=== PATIENT | female | born 1985 | race African-American/Black ===

== ENCOUNTER 2024-11-17 06:06 | Emergency (ER) | payer SELFPAY ==
[2024-11-17] MEDS ORDERED: ONDANSETRON 4 MG/2 ML VIAL ONE (06:48)
[2024-11-17] MEDS ORDERED: droPERidol 5 MG/2 ML VIAL ONE (06:48)
[2024-11-17] MEDS ORDERED: KETOROLAC 30 MG/ML INJ ONE (06:48)
[2024-11-17] MEDS ORDERED: CEFTRIAXONE 1000 MG/VIAL ONE (06:48)
[2024-11-17] MEDS ORDERED: MORPHINE 4 MG/ML SYR ONE (06:49)
[2024-11-17] MEDS ORDERED: NA CHLORIDE 0.9% 1,000 ML ONE (06:49)
[2024-11-17 06:55] LABS: Absolute Basophils 0.1 K/uL (0-0.5); Absolute Monocytes 1.1 K/uL (0.1-1.3); Absolute Neutrophil 10.2 K/uL (1.8-8.0); Basophils % 0.6 % (0-1.3); Eosinophils % 0.3 % (0-4.4); Hematocrit 39.7 % (36.0-45.0); Hemoglobin 13.9 g/dL (12.0-15.0); Lymphocytes % 14.7 % (15.3-44.8); MCH 33.9 pg (27.0-35.0); MCHC 35.1 g/dL (32.0-36.0); MCV 96.6 fL (80-100); MPV 8.1 fL (7.6-11.3); Monocytes % 8.5 % (3.3-12.3); Neutrophils % 75.9 % (41.7-73.7); Platelets 269 thou/uL (152-406); RBC Red Blood Cell Count 4.11 M/uL (3.86-4.86); Red Cell Distribution Width 13.8 % (12.1-15.2)
[2024-11-17 07:10] LABS: Albumin 3.9 g/dL (3.4-5.0); Albumin/Globulin Ratio 1.1 (1.1-1.8); Anion Gap 8.8 mEq/L (5.0-15.0); Bilirubin Total 0.5 mg/dL (0.2-1.0); Globulin 3.6 g/dL (2.3-3.5); Potassium 3.8 mEq/L (3.5-5.1); Protein, Total 7.5 g/dL (6.4-8.2)
--- NOTE | 2024-11-17 07:26 | RAD REPORT ---
EXAMINATION: CT MAXILLOFACIAL WITHOUT CONTRAST CLINICAL INDICATION: Facial pain.. Facial swelling TECHNIQUE: Axial images were obtained through the facial bones and orbits without intravenous contras t. Sagittal and coronal reconstructions were created from the data. One or more of the following dose reduction techniques were used: Automated exposure control, adjustment of the mA and/or kV accor ding to patient size, and/or iterative reconstruction. Unless otherwise specified, incidental findings do not require dedicated imaging follow-up. COMPARISON: No prior exam. FINDINGS: 6 mm lucency surrounds a right mandibular tooth system with abscess. Marked superficial swelling is present. A fluid-filled abscess not visualized. Visualized airway unremarkable Fluid within the sinuses not seen IMPRESSION: Right mandibular tooth apical abscess with marked superficial swelling compatible with a sinusitis
--- NOTE | 2024-11-17 07:29 | EDPHYS ---
Physician Documentation [facility] Name: Home [facility]oa Age: 39 yrs Sex: Female : 1985 Arrival Date: 11/17/2024 Time: 06:06 Bed 15 Private MD: ED Physician Patel Schumacher HPI: 11/17 06:11 This 39 yrs old Black Female presents to ER via Unassigned with complaints of Facial sp4 Swelling, Toothache, Nausea/Vomiting. 07:12 39-year-old female presents with acute pain swelling right lower facial area. Patient sp4 reports moderate to severe dental pain for the past several days. Denied any difficulty breathing.. DEPENDENCY DIRECTOR: 06:25 unknown, couple of weeks ago vc1 Historical: - Allergies: 06:23 Codeine; vc1 - Home Meds: 06:23 None [Active]; vc1 - PMHx: 06:23 None; vc1 - PSHx: 06:23 oophorectomy; right; vc1 - Immunization history:: Client reports receiving the 2nd dose of the Covid vaccine, Flu vaccine is not up to date. - Infectious Disease History:: Denies. - Social history:: Smoking status: Patient reports the use of cigarette tobacco products, smokes one-half pack cigarettes per day. - Family history:: not pertinent. ROS: 07:12 Constitutional: Negative for fever, chills, and weight loss, positive right lower sp4 facial pain, positive right lower dental pain 07:12 All other systems are negative, Exam: 07:12 Constitutional: This is a well developed, well nourished patient who is awake, alert, sp4 and in no acute distress. Head/Face: Normocephalic, atraumatic. Eyes: Pupils equal round and reactive to light, extra-ocular motions intact. Lids and lashes normal. Conjunctiva and sclera are not injected. Cornea within normal limits. Periorbital areas with no swelling, redness, or edema. ENT: Nares patent. No nasal discharge, no septal abnormalities noted. Tympanic membranes are normal and external auditory canals are clear. Oropharynx with no redness, swelling, or masses, exudates, or evidence of obstruction, uvula midline. Mucous membranes moist. Neck: Trachea midline, no thyromegaly or masses palpated, and no cervical lymphadenopathy. Supple, full range of motion without nuchal rigidity, or vertebral point tenderness. Chest/axilla: Normal chest wall appearance and motion. Nontender with no deformity. No lesions are appreciated. Cardiovascular: Regular rate and rhythm with a normal S1 and S2. No gallops, murmurs, or rubs. Normal PMI, no JVD. No pulse deficits. Respiratory: Lungs have equal breath sounds bilaterally, clear to auscultation and percussion. No rales, rhonchi or wheezes noted. No increased work of breathing, no retractions or nasal flaring. Abdomen/GI: Soft, with normal bowel sounds. No distension or tympany. No guarding or rebound. No evidence of tenderness throughout. Back: No spinal tenderness. No costovertebral tenderness. Skin: Warm, dry with normal turgor. Normal color with no rashes, no lesions, and no evidence of cellulitis. MS/ Extremity: Pulses equal, no cyanosis. Neurovascular intact. Full, normal range of motion. Neuro: Awake and alert, GCS 15, oriented to person, place, time, and situation. Cranial nerves II-XII grossly intact. Motor strength 5/5 in all extremities. Sensory grossly intact. Psych: Awake, alert, with orientation to person, place and time. Behavior, mood, and affect are within normal limits Vital Signs: 06:20 BP 148 / 86; Pulse 108; Resp 18; Temp 98.8; Pulse Ox 100% ; Weight 90.72 kg; Height 5 vc1 ft. 7 in. ; Pain 10/10; 07:21 BP 116 / 77; Pulse 75; Resp 18; Pulse Ox 100% on R/A; Pain 9/10; ld1 08:00 BP 122 / 79; Pulse 71; Resp 18; Pulse Ox 100% on R/A; Pain 5/10; ld1 06:20 Body Mass Index 31.32 (90.72 kg, 170.18 cm) vc1 06:20 Pain Scale: Adult vc1 07:21 Pain Scale: Adult ld1 08:00 Pain Scale: Adult ld1 Jevon Coma Score: 06:23 Eye Response: spontaneous(4). Motor Response: obeys commands(6). Verbal Response: rg5 oriented(5). Total: 15. 07:12 Eye Response: spontaneous(4). Motor Response: obeys commands(6). Verbal Response: sp4 oriented(5). Total: 15. MDM: 06:57 Medical Screening Exam initiated sp4 07:14 Differential diagnosis: dental caries, gingivitis, dental abscess, aphthous ulcers, sp4 gingivostomatitis. Data reviewed: vital signs, nurses notes, lab test result(s), radiologic studies, CT scan. Consideration of Admission/Observation Escalation of care including admission/observation considered. Transition of care: After a detail discussion of the patient's case, care is transferred to Patel Schumacher DO. 07:54 I considered the following discharge prescriptions or medication management in the [facility] emergency department Medications were administered in the Emergency Department. See MAR. Independent interpretation of the following test(s) in the Emergency Department CT Scan: My interpretation is CT images reviewed by me showed periapical abscess. Counseling: I had a detailed discussion with the patient and/or guardian regarding the historical points, exam findings, and any diagnostic results supporting the discharge/admit diagnosis, lab results, radiology results, the need for outpatient follow up, to return to the emergency department if symptoms worsen or persist or if there are any questions or concerns that arise at home. Transition of care: Care assumed from Isac Cristina MD. Special discussion: I discussed with the patient/guardian in detail that at this point there is no indication for admission to the hospital. It is understood, however, that if the symptoms persist or worsen the patient needs to return immediately for re-evaluation. ED course: Discussed labs and imaging results with patient. Patient given prescription for clindamycin 300 mg 4 times daily. Patient to follow-up with Dr. Higgins or in 2 to 3 days. Patient's submandibular space soft, no induration, no erythema. Patient tolerating p.o. Return precautions discussed to include submandibular erythema, swelling, tongue elevation, difficulty breathing, worsening symptoms, or any other concerns.. 11/17 06:34 Order name: CBC with Diff; Complete Time: 07:14 sp4 11/17 06:34 Order name: CMP; Complete Time: 07:14 4 11/17 06:36 Order name: Test, Serum; Complete Time: 07:14 sp4 11/17 06:36 Order name: CT Facial Bones W/O Con; Complete Time: 07:27 4 11/17 06:34 Order name: IV Saline Lock; Complete Time: 06:45 sp4 11/17 06:34 Order name: Labs collected and sent; Complete Time: 06:44 sp4 Administered Medications: 07:01 Drug: TORadol - Ketorolac IVP 30 mg IVP once Route: IVP; Site: right antecubital; rg5 08:01 Follow up: Response: No adverse reaction ld1 07:01 Drug: Ondansetron IVP 4 mg IVP once; over 2 minutes Route: IVP; Site: right antecubital;rg5 08:01 Follow up: Response: No adverse reaction ld1 07:01 Drug: NS 0.9% IV 1000 ml IV at 1 bolus Per protocol; to be given as a bolus over 60 rg5 minutes Route: IV; Rate: 1 bolus; Site: right antecubital; 08:01 Follow up: Response: No adverse reaction; IV Status: Completed infusion; IV Intake: ld1 1000ml 07:01 Drug: Rocephin - Rocephin (cefTRIAXone) IVPB 1 grams IVPB once over 30 mins; (mix in 50 rg5 mL NS) Route: IVPB; Infused Over: 30 mins; Site: right antecubital; 08:01 Follow up: Response: No adverse reaction; IV Status: Completed infusion ld1 07:01 Drug: Droperidol IVP 2.5 mg IVP once Route: IVP; Site: right antecubital; rg5 08:01 Follow up: Response: No adverse reaction ld1 07:02 Drug: morphine IVP or IV 4 mg IVP once over 4 mins Route: IVP; Infused Over: 4 mins; rg5 Site: right antecubital; 08:02 Follow up: Response: No adverse reaction ld1 Disposition Summary: 11/17/24 07:29 Discharge Ordered Notes: Location: Home ms3 Condition: Stable ms3 Diagnosis - Tooth abscess ms3 - Facial swelling ms3 Followup: ms3 - With: Joel Velasquez DDS - When: 2 - 3 days - Reason: Recheck today's complaints Discharge Instructions: - Discharge Summary Sheet ms3 Forms: - Medication Reconciliation Form ms3 - Antibiotic Education ms3 - Prescription Opioid Use ms3 - Patient Portal Instructions ms3 - Leadership Thank You Letter ms3 Prescriptions: - Clindamycin HCl 300 mg Oral Capsule - take 1 capsule ORAL route every 6 hours for 10 days; 40 capsule; Refills: 0, ms3 Product Selection Permitted Signatures: Dispatcher [employer] Patel Pierce DO DO ms3 Argelia Urena RN RN vc1 Isac Cristina MD MD sp4 Judson Cruz RN RN rg5 eJna Schumacher RN ld1 Corrections: (The following items were deleted from the chart) 06:24 06:23 PSHx: None; vc1 vc1
--- NOTE | 2024-11-17 07:29 | ER ---
Nurse's Notes [facility] Name: Home [facility]oa Age: 39 yrs Sex: Female : 1985 Arrival Date: 11/17/2024 Time: 06:06 Bed 15 Private MD: Diagnosis: Tooth abscess;Facial swelling Presentation: 11/17 06:20 Chief complaint: Patient states: toothache yesterday woke up at 0400 am with face vc1 swollen and vomiting. Coronavirus screen: Client denies travel out of the [place] in the last 14 days. Ebola Screen: Patient negative for fever greater than or equal to 101.5 degrees Fahrenheit, and additional compatible Ebola Virus Disease symptoms Patient denies exposure to infectious person. Patient denies travel to an Ebola-affected area in the 21 days before illness onset. No symptoms or risks identified at this time. Initial Sepsis Screen: Does the patient meet any 2 criteria? No. Patient's initial sepsis screen is negative. Does the patient have a suspected source of infection? No. Patient's initial sepsis screen is negative. Risk Assessment: Do you want to hurt yourself or someone else? Patient reports no desire to harm self or others. Onset of symptoms was November 16, 2024. Care prior to arrival: None. Activity prior to arrival: vomiting. Mechanism of Injury: No Mechanism of Injury. Transition of care: patient was not received from another setting of care. 06:20 Method Of Arrival: Ambulatory vc1 06:20 Acuity: EDUAR 3 vc1 Triage Assessment: 06:25 General: Appears in no apparent distress. uncomfortable, Behavior is calm, cooperative, vc1 appropriate for age. Pain: Complains of pain in mouth, chin and right jaw Pain does not radiate. Pain currently is 10 out of 10 on a pain scale. EENT: Reports pain in mouth, chin and right jaw. Neuro: Level of Consciousness is awake, alert, obeys commands, Oriented to person, place, time, situation, Appropriate for age. Cardiovascular: Capillary refill < 3 seconds. Respiratory: Airway is patent Respiratory effort is even, unlabored, Respiratory pattern is regular, symmetrical. GI: Abdomen is round non-distended, Reports nausea, vomiting. : No deficits noted. No signs and/or symptoms were reported regarding the genitourinary system. Derm: Skin is intact, is healthy with good turgor, Skin is dry, Skin is normal, Skin temperature is warm. Musculoskeletal: Swelling present in mouth and right jaw. LOGISTICIAN: :25 unknown, couple of weeks ago vc1 Historical: - Allergies: : Codeine; vc1 - Home Meds: : None [Active]; vc1 - PMHx: : None; vc1 - PSHx: 06: oophorectomy; right; vc1 - Immunization history:: Client reports receiving the 2nd dose of the Covid vaccine, Flu vaccine is not up to date. - Infectious Disease History:: Denies. - Social history:: Smoking status: Patient reports the use of cigarette tobacco products, smokes one-half pack cigarettes per day. - Family history:: not pertinent. Screenin:24 [facility] ED Fall Risk Assessment (Adult) History of falling in the last 3 months, vc1 including since admission No falls in past 3 months (0 pts) Confusion or Disorientation No (0 pts) Intoxicated or Sedated No (0 pts) Impaired Gait No (0 pts) Mobility Assist Device Used No (0 pt) Altered Elimination No (0 pt) Score/Fall Risk Level 0 - 2 = Low Risk Oriented to surroundings, Maintained a safe environment, Educated pt \T\ family on fall prevention, incl call for assistance when getting out of bed, Hourly rounding (assess needs \T\ fall precautionary measures) done. Abuse screen: Denies threats or abuse. Nutritional screening: No deficits noted. Tuberculosis screening: No symptoms or risk factors identified. Assessment: 06:23 General: Appears in no apparent distress. uncomfortable, Behavior is calm, cooperative, rg5 appropriate for age. Pain: Complains of pain in right submandibular area Pain currently is 10 out of 10 on a pain scale. Quality of pain is described as aching. Neuro: Level of Consciousness is awake, alert, obeys commands, Oriented to person, place, time, situation. Cardiovascular: Denies chest pain, Patient's skin is warm and dry. Respiratory: Airway is patent Trachea midline Breath sounds are clear. GI: No signs and/or symptoms were reported involving the gastrointestinal system. : No signs and/or symptoms were reported regarding the genitourinary system. EENT: No deficits noted. Derm: Skin is intact, Skin is dry, Skin is normal, Skin temperature is warm. Musculoskeletal: Circulation, motion, and sensation intact. Range of motion: intact in all extremities, Swelling present in mouth and right jaw Reports. 07:21 General: Appears in no apparent distress. uncomfortable, Behavior is calm, cooperative, ld1 appropriate for age. Pain: Complains of pain in chin and face and right jaw and neck and right submandibular area and mouth Pain does not radiate. Pain currently is 8 out of 10 on a pain scale. Quality of pain is described as throbbing. Neuro: Level of Consciousness is awake, alert, obeys commands, Oriented to person, place, time, situation. Cardiovascular: Capillary refill < 3 seconds Patient's skin is warm and dry. Respiratory: Airway is patent Respiratory effort is even, unlabored. GI: Abdomen is round non-distended. : No signs and/or symptoms were reported regarding the genitourinary system. EENT: No signs and/or symptoms were reported regarding the EENT system. Derm: No signs and/or symptoms reported regarding the dermatologic system. Musculoskeletal: No signs and/or symptoms reported regarding the musculoskeletal system. Vital Signs: 06:20 BP 148 / 86; Pulse 108; Resp 18; Temp 98.8; Pulse Ox 100% ; Weight 90.72 kg; Height 5 vc1 ft. 7 in. ; Pain 10/10; 07:21 BP 116 / 77; Pulse 75; Resp 18; Pulse Ox 100% on R/A; Pain 9/10; ld1 08:00 BP 122 / 79; Pulse 71; Resp 18; Pulse Ox 100% on R/A; Pain 5/10; ld1 06:20 Body Mass Index 31.32 (90.72 kg, 170.18 cm) vc1 06:20 Pain Scale: Adult vc1 07:21 Pain Scale: Adult ld1 08:00 Pain Scale: Adult ld1 Jevon Coma Score: 06:23 Eye Response: spontaneous(4). Motor Response: obeys commands(6). Verbal Response: rg5 oriented(5). Total: 15. 07:12 Eye Response: spontaneous(4). Motor Response: obeys commands(6). Verbal Response: sp4 oriented(5). Total: 15. ED Course: 06:07 Patient arrived in ED. [id number] 06:11 Isac Cristina MD is Attending Physician. sp4 06:14 Judson Cruz, RN is Primary Nurse. rg5 06:23 Triage completed. vc1 06:23 No provider procedures requiring assistance completed. rg5 06:24 Arm band placed on right wrist. vc1 06:25 Patient has correct armband on for positive identification. Bed in low position. Call vc1 light in reach. Provided Education on: plan of care. Pulse ox on. NIBP on. 07:10 CT Facial Bones W/O Con In Process Unspecified. EDMS 07:13 Attending Physician role handed off by Isac Cristina MD ms3 07:13 Patel Schumacher DO is Attending Physician. ms3 07:28 Joel Velasquez DDS is Referral Physician. ms3 08:01 IV discontinued, intact, bleeding controlled, No redness/swelling at site. ld1 Administered Medications: 07:01 Drug: TORadol - Ketorolac IVP 30 mg IVP once Route: IVP; Site: right antecubital; rg5 08:01 Follow up: Response: No adverse reaction ld1 07:01 Drug: Ondansetron IVP 4 mg IVP once; over 2 minutes Route: IVP; Site: right antecubital;rg5 08:01 Follow up: Response: No adverse reaction ld1 07:01 Drug: NS 0.9% IV 1000 ml IV at 1 bolus Per protocol; to be given as a bolus over 60 rg5 minutes Route: IV; Rate: 1 bolus; Site: right antecubital; 08:01 Follow up: Response: No adverse reaction; IV Status: Completed infusion; IV Intake: ld1 1000ml 07:01 Drug: Rocephin - Rocephin (cefTRIAXone) IVPB 1 grams IVPB once over 30 mins; (mix in 50 rg5 mL NS) Route: IVPB; Infused Over: 30 mins; Site: right antecubital; 08:01 Follow up: Response: No adverse reaction; IV Status: Completed infusion ld1 07:01 Drug: Droperidol IVP 2.5 mg IVP once Route: IVP; Site: right antecubital; rg5 08:01 Follow up: Response: No adverse reaction ld1 07:02 Drug: morphine IVP or IV 4 mg IVP once over 4 mins Route: IVP; Infused Over: 4 mins; rg5 Site: right antecubital; 08:02 Follow up: Response: No adverse reaction ld1 Medication: 06:24 VIS not applicable for this client. vc1 Intake: 08:01 IV: 1000ml; Total: 1000ml. ld1 Outcome: 07:29 Discharge ordered by . ms3 08:01 Discharged to home ambulatory, ld1 08:01 Condition: stable 08:01 Discharge instructions given to patient, Instructed on discharge instructions, follow up and referral plans. Demonstrated understanding of instructions, follow-up care, medications, Prescriptions given X 1, 08:02 Patient left the ED. ld1 Signatures: Dispatcher [employer] EDMS Patel Schumacher DO DO ms3 Jena Schumacher, RN RN ld1 Bee [id number] Argelia Urena RN RN vc1 Isac Cristina MD MD sp4 Judson Cruz RN RN rg5 Corrections: (The following items were deleted from the chart) 06:24 06:23 PSHx: None; vc1 vc1
[2024-11-18 02:44] VITALS: TEMP 98.8; O2SAT 100
[2024-11-18 02:46] VITALS: BP 122/79
== END 2024-11-17 08:02 | disposition home or self-care (01) ==
LOC: ER 06:06
DX: K04.7 Periapical abscess without sinus (principal)
CPT/HCPCS: 36415; 70486; 76377; 80053; 84703; 85025; J0696; J1790; J2405; J7030

== ENCOUNTER 2024-11-18 16:00 | Emergency (ER) | payer SELFPAY ==
[2024-11-18 17:48] LABS: Absolute Basophils 0.1 K/uL (0-0.5); Absolute Eosinophils 0.1 K/uL (0-0.5); Absolute Lymphocytes (CBC) 2.8 K/uL (0.7-4.9); Absolute Neutrophil 7.3 K/uL (1.8-8.0); Basophils % 0.5 % (0-1.3); Eosinophils % 0.7 % (0-4.4); Hematocrit 39.9 % (36.0-45.0); Hemoglobin 13.7 g/dL (12.0-15.0); MCH 33.3 pg (27.0-35.0); MCHC 34.4 g/dL (32.0-36.0); MCV 96.8 fL (80-100); Monocytes % 8.5 % (3.3-12.3); Neutrophils % 65.3 % (41.7-73.7); Nucleated Red Blood Cells % 0.1 % (0-0); Platelets 253 thou/uL (152-406); RBC Red Blood Cell Count 4.12 M/uL (3.86-4.86); Red Cell Distribution Width 13.5 % (12.1-15.2)
[2024-11-18 18:01] LABS: ALT/SGPT 17 U/L (13-56); Albumin 3.4 g/dL (3.4-5.0); Albumin/Globulin Ratio 0.9 (1.1-1.8); Alkaline Phosphatase 57 U/L (45-117); Anion Gap 7.8 mEq/L (5.0-15.0); BUN Blood Urea Nitrogen 7 mg/dL (7-18); Bicarbonate 28 mEq/L (21-32); Bilirubin Total 0.5 mg/dL (0.2-1.0); Globulin 3.6 g/dL (2.3-3.5); Glomerular Filtration Rate 82 ml/min (=/>90); Glucose Level 137 mg/dL (74-106); Potassium 3.8 mEq/L (3.5-5.1); Sodium Level 134 mEq/L (136-145)
[2024-11-18 18:04] LABS: AST/SGOT < 10 U/L (15-37)
--- NOTE | 2024-11-18 18:18 | RAD REPORT ---
EXAM: Soft Tissue Neck W/Contr INDICATION: SWELLING Sagittal and coronal reformations were generated. This exam was performed according to our department al dose-optimization program, which includes automated exposure control, adjustment of the mA and/or kV according to patient size and/or use of iterative reconstruction technique. IV contrast was administered. COMPARISON: None. FINDINGS: There is soft tissue inflammatory changes seen in the submental location with several mildly prominen t lymph nodes present. Subperiosteal abscess is seen along the right anterior mandible measuring 10 x 6 mm. There are adjacent eroded teeth to as well as periapical abscess involving the anterior right premolar measuring 6 mm. Several mildly prominent lymph nodes are seen throughout the neck likely reactive. Symmetric salivary glands. Thyroid gland appears mildly diffusely enlarged. IMPRESSION: Odontogenic abscess along the right anterior mandibular buccal cortex likely attributable to adjacent dental erosion and premolar periapical abscess.
--- NOTE | 2024-11-18 18:20 | ER ---
Nurse's Notes [facility] Name: Home Gamboa Age: 39 yrs Sex: Female : 1985 Arrival Date: 11/18/2024 Time: 16:00 Bed 12 Private MD: Diagnosis: Periapical abscess without sinus-ABSCESS;Cellulitis and acute lymphangitis of face and neck Presentation: 11/18 16:11 Chief complaint: Patient states: was seen here last night for a toothache and her face iw was swollen, today she went to dentist and the swelling was worse and moved down her neck, he started her on another antibiotic, but the swelling has increases since then, feels like her throat is tightening up. Coronavirus screen: At this time, the client does not indicate any symptoms associated with coronavirus-19. Ebola Screen: No symptoms or risks identified at this time. Initial Sepsis Screen: Does the patient meet any 2 criteria? HR > 90 bpm. Does the patient have a suspected source of infection?. Risk Assessment: Do you want to hurt yourself or someone else? Patient reports no desire to harm self or others. Onset of symptoms was November 18, 2024. 16:11 Acuity: EDUAR 2 iw 16:11 Method Of Arrival: Ambulatory iw Triage Assessment: 19:00 General: Appears in no apparent distress. uncomfortable, Behavior is calm, cooperative. kb3 Pain: Complains of pain in right jaw Pain radiates to right cheek, right ear and right jaw Pain currently is 7 out of 10 on a pain scale. Quality of pain is described as throbbing. EENT: Reports pain in right cheek, right ear and right jaw when swallowing. 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 Last tetanus immunization: unknown. - Infectious Disease History:: Denies. - Social history:: Smoking status: Patient reports the use of cigarette tobacco products, smokes one pack cigarettes per day. Screenin:00 [facility] ED Fall Risk Assessment (Adult) History of falling in the last 3 months, kb3 including since admission No falls in past 3 months (0 pts) Confusion or Disorientation No (0 pts) Intoxicated or Sedated No (0 pts) Impaired Gait No (0 pts) Mobility Assist Device Used No (0 pt) Altered Elimination No (0 pt) Score/Fall Risk Level 0 - 2 = Low Risk Oriented to surroundings. Abuse screen: Denies threats or abuse. Denies injuries from another. Nutritional screening: No deficits noted. Tuberculosis screening: No symptoms or risk factors identified. Assessment: 17:38 Reassessment: No changes from previously documented assessment. Patient and/or family ll1 updated on plan of care and expected duration. Pain level reassessed. 20:00 Reassessment: No changes from previously documented assessment. Patient and/or family kb3 updated on plan of care and expected duration. Pain level reassessed. Patient states feeling better. 20:43 General: Report called to Danelle at [facility]. kb3 21:00 General: Appears in no apparent distress. comfortable, Behavior is calm, cooperative, kb3 [facility] at bedside. Report given. Care transferred. Vital Signs: 16:11 BP 144 / 91; Pulse 117; Resp 19; Temp 98.5; Pulse Ox 100% on R/A; Weight 90.72 kg; iw Height 5 ft. 7 in. ; 20:22 BP 151 / 92; Pulse 86; Temp 98.8; Pulse Ox 97% on R/A; rk3 21:10 BP 148 / 88; Pulse 85; Resp 18; Pulse Ox 98% ; kb3 16:11 Body Mass Index 31.32 (90.72 kg, 170.18 cm) iw ED Course: 16:02 Patient arrived in ED. im 16:07 Bernie Penaloza MD is Attending Physician. gb1 16:13 Triage completed. iw 17:29 Maxillofacial W/Cont CT In Process Unspecified. EDMS 17:29 Soft Tissue Neck W/Contr CT In Process Unspecified. EDMS 17:37 Initial lab(s) drawn, by ga. Inserted saline lock:. Inserted saline lock: 22 gauge in ll1 left antecubital area, using aseptic technique. Blood collected. Flushed with 10 mL NS. 18:34 Attending Physician role handed off by Bernie Penaloza MD [facility] 18:34 Torres Bell MD is Attending Physician. [facility] 19:00 Arm band placed on right wrist. Patient placed in an exam room, on a stretcher. kb3 19:37 Inserted saline lock: 20 gauge in right antecubital area, using aseptic technique. rk3 Blood collected. Flushed with 10 mL NS. 19:37 Blood Culture Adult (2) Sent. rk3 19:37 Lactate w/ 2H reflex if indic. Sent. rk3 19:37 Protime (+inr) Sent. rk3 19:38 Ptt, Activated Sent. rk3 20:00 No provider procedures requiring assistance completed. Changed dressing on left kb3 antecubital Flushed left antecubital. 20:00 Patient has correct armband on for positive identification. Bed in low position. Call kb3 light in reach. Provided Education on: Educated regarding pending transfer. Administered Medications: 19:00 Drug: NS 0.9% IV (30 ml/kg) 30 ml/kg IV at bolus once; Sepsis Protocol; to be given as kb3 a bolus over 90 minutes Route: IV; Rate: bolus; Site: left antecubital; 20:18 Follow up: IV Status: Completed infusion; IV Intake: 3000ml kb3 19:00 Drug: Clindamycin IVPB 900 mg IVPB once over 30 mins; (mix in 50 mL) Route: IVPB; kb3 Infused Over: 30 mins; Site: right antecubital; 20:19 Follow up: Response: No adverse reaction; IV Status: Completed infusion; IV Intake: [id number] 19:00 Drug: MethylPrednisoLONE IVP 125 mg IVP once Route: IVP; Site: right antecubital; kb3 20:19 Follow up: Response: No adverse reaction kb3 19:00 Drug: Famotidine IVP 20 mg IVP once; dilute with 10 mL 0.9% NaCl; give over 2 minutes kb3 Route: IVP; Site: left antecubital; 20:19 Follow up: Response: No adverse reaction kb3 19:00 Drug: diphenhydrAMINE IVP 12.5 mg IVP once Route: IVP; Site: left antecubital; kb3 20:19 Follow up: Response: No adverse reaction kb3 19:00 Drug: Rocephin IV 2 grams IV at per protocol once; Given slow IV push per pharmarcy kb3 instructions Route: IV; Rate: per protocol; Site: left antecubital; 20:19 Follow up: Response: No adverse reaction; IV Status: Completed infusion; IV Intake: kb3 100ml Medication: 20:00 VIS not applicable for this client. kb3 Intake: 20:18 IV: 3000ml; Total: 3000ml. kb3 20:19 IV: 100ml; Total: 3100ml. kb3 20:19 IV: 50ml; Total: 3150ml. kb3 Outcome: 18:19 ER care complete, transfer ordered by MD. rodriguez 21:11 Transferred by ground EMS to [facility], kb3 21:11 Condition: stable 21:11 Instructed on the need for transfer, 21:11 Patient left the ED. kb3 Signatures: Dispatcher [employer] EDMS Torres Bell MD MD cha Williams, Irene RN АНДРЕЙ iw Dwight De Anda RN RN ll1 Lyn Justin RN RN kb3 Majo Jolley Gina, MD MD gb1 Tea Valles rk3 Corrections: (The following items were deleted from the chart) 20:12 20:11 diphenhydrAMINE IVP 12.5 mg IVP in left antecubital kb3 kb3
--- NOTE | 2024-11-18 18:20 | EDPHYS ---
Physician Documentation [facility] Name: Home Gamboa Age: 39 yrs Sex: Female : 1985 Arrival Date: 11/18/2024 Time: 16:00 Bed 12 Private MD: ED Physician Torres Bell HPI: 11/18 17:21 This 39 yrs old Black Female presents to ER via Ambulatory with complaints of gb1 Toothache, Facial Swelling, Neck Swelling, Palpitations. 17:21 39-year-old female with right-sided facial swelling and lip swelling. She was here gb1 yesterday for right-sided tooth abscess was given IV antibiotics and sent home with antibiotics and told to follow-up with her dentist. She went to the dentist today and her face was more swollen and her mouth was more swollen. Patient is a heavy smoker smokes between her half pack and a pack of cigarettes a day and has poor dentition at the baseline. 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 Last tetanus immunization: unknown. - Infectious Disease History:: Denies. - Social history:: Smoking status: Patient reports the use of cigarette tobacco products, smokes one pack cigarettes per day. ROS: 18:36 Constitutional: Negative for fever, chills, and weight loss, Eyes: Negative for injury, mckayla pain, redness, and discharge, Neck: Negative for injury, pain, and swelling, Cardiovascular: Negative for chest pain, palpitations, and edema, Respiratory: Negative for shortness of breath, cough, wheezing, and pleuritic chest pain, Abdomen/GI: Negative for abdominal pain, nausea, vomiting, diarrhea, and constipation, Back: Negative for injury and pain, : Negative for injury, bleeding, discharge, and swelling, MS/Extremity: Negative for injury and deformity, Skin: Negative for injury, rash, and discoloration, Neuro: Negative for headache, weakness, numbness, tingling, and seizure, Psych: Negative for depression, anxiety, suicide ideation, homicidal ideation, and hallucinations, Allergy/Immunology: Negative for hives, rash, and allergies, Endocrine: Negative for neck swelling, polydipsia, polyuria, polyphagia, and marked weight changes, Hematologic/Lymphatic: Negative for swollen nodes, abnormal bleeding, and unusual bruising, 18:36 ENT: Positive for dental pain, difficulty swallowing, 18:36 Neck: Positive for injury or acute deformity, pain with movement, pain at rest, swollen nodes, tenderness, Exam: 17:21 Constitutional: This is a well developed, well nourished patient who is awake, alert, gb1 and in no acute distress. Eyes: Pupils equal round and reactive to light, extra-ocular motions intact. Lids and lashes normal. Conjunctiva and sclera are non-icteric and not injected. Cornea within normal limits. Periorbital areas with no swelling, redness, or edema. ENT: Nares patent. No nasal discharge, no septal abnormalities noted. Tympanic membranes are normal and external auditory canals are clear. Oropharynx with no redness, swelling, or masses, exudates, or evidence of obstruction, uvula midline. Mucous membranes moist. Patient has right mandibular swelling and tenderness to touch on the right face, she also has brawny edema and angioedema upper and lower. Chest/axilla: Normal chest wall appearance and motion. Nontender with no deformity. No lesions are appreciated. Cardiovascular: Tachycardic rate and rhythm with a normal S1 and S2. No gallops, murmurs, or rubs. Normal PMI, no JVD. No pulse deficits. Respiratory: Lungs have equal breath sounds bilaterally, clear to auscultation and percussion. No rales, rhonchi or wheezes noted. No increased work of breathing, no retractions or nasal flaring. Back: No spinal tenderness. No costovertebral tenderness. Full range of motion. Skin: Warm, dry with normal turgor. Normal color with no rashes, no lesions, and no evidence of cellulitis. Vital Signs: 16:11 BP 144 / 91; Pulse 117; Resp 19; Temp 98.5; Pulse Ox 100% on R/A; Weight 90.72 kg; iw Height 5 ft. 7 in. ; 20:22 BP 151 / 92; Pulse 86; Temp 98.8; Pulse Ox 97% on R/A; rk3 21:10 BP 148 / 88; Pulse 85; Resp 18; Pulse Ox 98% ; kb3 16:11 Body Mass Index 31.32 (90.72 kg, 170.18 cm) iw MDM: 16:15 Medical Screening Exam initiated gb1 17:21 Data reviewed: vital signs, nurses notes. 18:10 ED course: Pt with patent airway, no signs of acute respiratory distress. Plan to dispo gb1 per CT soft tissue neck results, and then transfer to [facility] facility-- as she needs I \T\ D of abscess, consider MICU for acceptance due to risk of airway compromise.. 11/18 16:27 Order name: Blood Culture Adult (2) 11/18 16:27 Order name: CBC with Diff; Complete Time: 18:06 11/18 16:27 Order name: CMP; Complete Time: 18:06 11/18 18:06 Interpretation: Within normal limits. 11/18 16:27 Order name: Lactate w/ 2H reflex if indic. 11/18 16:27 Order name: Protime (+inr) 11/18 16:27 Order name: Ptt, Activated 11/18 16:27 Order name: Maxillofacial W/Cont CT; Complete Time: 18:34 11/18 16:27 Order name: Soft Tissue Neck W/Contr CT; Complete Time: 18:34 11/18 16:27 Order name: Accucheck; Complete Time: 20:13 11/18 16:27 Order name: Cardiac monitoring; Complete Time: 20:13 11/18 16:27 Order name: IV Saline Lock - Large Bore; Complete Time: 19:38 11/18 16:27 Order name: Labs collected and sent; Complete Time: 20:13 11/18 16:27 Order name: O2 Per Protocol; Complete Time: 20:13 11/18 16:27 Order name: Vital Signs; Complete Time: 20:13 11/18 18:36 Order name: NPO; Complete Time: 20:11 mckayla Administered Medications: 19:00 Drug: NS 0.9% IV (30 ml/kg) 30 ml/kg IV at bolus once; Sepsis Protocol; to be given as kb3 a bolus over 90 minutes Route: IV; Rate: bolus; Site: left antecubital; 20:18 Follow up: IV Status: Completed infusion; IV Intake: 3000ml kb3 19:00 Drug: Clindamycin IVPB 900 mg IVPB once over 30 mins; (mix in 50 mL) Route: IVPB; kb3 Infused Over: 30 mins; Site: right antecubital; 20:19 Follow up: Response: No adverse reaction; IV Status: Completed infusion; IV Intake: [id number] 19:00 Drug: MethylPrednisoLONE IVP 125 mg IVP once Route: IVP; Site: right antecubital; kb3 20:19 Follow up: Response: No adverse reaction kb3 19:00 Drug: Famotidine IVP 20 mg IVP once; dilute with 10 mL 0.9% NaCl; give over 2 minutes kb3 Route: IVP; Site: left antecubital; 20:19 Follow up: Response: No adverse reaction kb3 19:00 Drug: diphenhydrAMINE IVP 12.5 mg IVP once Route: IVP; Site: left antecubital; kb3 20:19 Follow up: Response: No adverse reaction kb3 19:00 Drug: Rocephin IV 2 grams IV at per protocol once; Given slow IV push per pharmarcy kb3 instructions Route: IV; Rate: per protocol; Site: left antecubital; 20:19 Follow up: Response: No adverse reaction; IV Status: Completed infusion; IV Intake: kb3 100ml Disposition Summary: 11/18/24 18:19 Transfer Ordered Notes: Transfer Location: [facility] gb1 Reason: Higher level of care gb1 Condition: Fair gb1 Problem: new gb1 Symptoms: have worsened gb1 Accepting Physician: Dr. CERVANTES(11/18/24 21:11) kb3 Diagnosis - Cellulitis and acute lymphangitis of face and neck gb1 - Periapical abscess without sinus - ABSCESS(11/18/24 18:39) mckayla Forms: - Medication Reconciliation Form gb1 - SBAR form gb1 Critical care time excluding procedures: 18:10 Critical care time: Bedside Care: 100 minutes, Consultation: 20 minutes, Family gb1 Intervention: 20 minutes. Total time: 140 minutes Signatures: Dispatcher [employer] Torres Magdaleno MD MD cha Williams, Irene, RN RN Lyn Justin RN RN kb3 Bernie Penaloza MD MD gb1 Corrections: (The following items were deleted from the chart) 16:27 16:27 Maxillofacial W/Cont+CT.RAD.BRZ ordered. EDMS EDMS 16:28 16:28 Soft Tissue Neck W/Contr+CT.RAD.BRZ ordered. EDMS EDMS 18:39 18:19 Dr. BILLY daily1 mckayla 18:39 18:19 Periapical abscess without sinus 1 [facility] 20:18 16:27 EKG - Nurse/Tech ordered. gb1 kb3 21:11 18:39 Dr. CERVANTES [facility] kb3
--- NOTE | 2024-11-18 18:23 | RAD REPORT ---
EXAMINATION: CT MAXILLOFACIAL WITH CONTRAST CLINICAL INDICATION: FACIAL PAIN TECHNIQUE: Axial images were obtained through the facial bones and orbits with intravenous contrast. Sagittal and coronal reconstructions were created from the data. One or more of the following dose reduction techniques were used: Automated exposure control, adjustment of the mA and/or kV according to patient size, and/or iterative reconstruction. Unless otherwise specified, incidental findings do not require dedicated imaging follow-up. COMPARISON: No prior exam. FINDINGS: SOFT TISSUE: Subperiosteal abscess is seen along the right frontal mandibular buccal cortex measuring approximately 12 x 4 mm. There is significant adjacent soft tissue swelling edema present. This appears to be related to eroded interstitial involving right posterior molar and premolar. Right kayli ibular premolar demonstrates moderate periapical abscesses measuring up to 8 mm. BONES: No evidence of fracture, dislocation, or aggressive osseous lesions. No lesion of the visuali zed skull base or calvarium. ORBITS: The globes are intact. No intraorbital hemorrhage or mass. SINUSES: The visualized paranasal sinuses and mastoid air cells are essentially clear. There are mildly prominent lymph nodes seen in both submandibular region. Upper limit of normal lymph nodes submental station with significant inflammation present in the region. IMPRESSION: Subperiosteal abscess right anterior mandibular buccal cortex measuring 12 x 4 mm, likely odontogenic origin. Adjacent poor dentition is seen with right mandibular premolar 8 mm periapical abscess. Bilateral mildly prominent lymphadenopathy in the neck likely reactive.
[2024-11-18] MEDS ORDERED: METHYLPREDNISOLONE 125 MG INJ ONE (19:09)
[2024-11-18] MEDS ORDERED: DIPHENHYDRAMINE 50 MG/ML VIAL ONE (19:09)
[2024-11-18] MEDS ORDERED: FAMOTIDINE 20 MG/2 ML VIAL IV ONE (19:09)
[2024-11-18] MEDS ORDERED: CEFTRIAXONE 2000 MG/VIAL ONE (19:09)
[2024-11-18] MEDS ORDERED: CLINDAMYCIN 900MG/D5W 900 MG/50 ML IVPB IV ONE (19:09)
[2024-11-18] MEDS ORDERED: NA CHLORIDE 0.9% 100 ML ONE (19:10)
[2024-11-18] MEDS ORDERED: NA CHLORIDE 0.9% 3,000 ML ONE (19:10)
[2024-11-18 19:55] LABS: PT Prothrombin Time 11.8 SECONDS (10-13.0); Protime INR 1.04
[2024-11-18 21:25] VITALS: TEMP 98.8
[2024-11-18 21:27] VITALS: BP 148/88; O2SAT 98
== END 2024-11-18 21:11 | disposition short-term general hospital (02) ==
LOC: ER 16:00
DX: L03.211 Cellulitis of face (principal); L03.221 Cellulitis of neck; L03.212 Acute lymphangitis of face; L03.222 Acute lymphangitis of neck; K04.7 Periapical abscess without sinus
CPT/HCPCS: 36415; 70487; 70491; 80053; 83605; 85025; 85610; 85730; 87040; J0696; J1200; J2919; J7030; Q9967